=== PATIENT | female | born 1995 ===

== ENCOUNTER 2018-07-01 15:18 | Emergency (ER) | payer OTHER ==
[2018-07-01 15:30] VITALS: BMI 20.1
[2018-07-01] MEDS ORDERED: Tdap Vaccine 0.5 ml Vial (10-64 yrs) IM ONE ×2 (15:43→15:51)
[2018-07-01] MEDS ORDERED: Lidocaine Hydrochloride 5 ML INJ ONE (15:44)
--- NOTE | 2018-07-01 15:46 | C.PDOC ---
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 Patient states that she hit her hand against a piece of gym equipment when she was in the gym and sustained a laceration to the dorsal aspect of left 1st digit. She notes that she had bleeding which was controlled with pressure. Bandage in place on arrival. Unknown last tetanus. Denies having weakness, numbness, parasthesia, or lacerations elsewhere. Time Seen by Provider: 07/01/18 15:36 Chief Complaint (Nursing): Abnormal Skin Integrity History Per: Patient History/Exam Limitations: no limitations Onset/Duration Of Symptoms: Hrs Current Symptoms Are (Timing): Still Present Severity: Moderate Past Medical History Reviewed: Historical Data, Nursing Documentation, Vital Signs Vital Signs: Last Vital Signs Temp 98.5 F 07/01/18 15:30 Pulse 65 07/01/18 15:30 Resp BP 111/72 07/01/18 15:30 Pulse Ox 100 07/01/18 15:30 - Medical History PMH: No Chronic Diseases Surgical History: No Surg Hx Family History: States: No Known Family Hx - Social History Hx Tobacco Use: No Hx Alcohol Use: No Hx Substance Use: No - Immunization History Hx Tetanus Toxoid Vaccination: Yes Hx Influenza Vaccination: No Hx Pneumococcal Vaccination: No Review Of Systems Except As Marked, All Systems Reviewed And Found Negative. Constitutional: Negative for: Fever, Chills Cardiovascular: Negative for: Chest Pain, Palpitations Respiratory: Negative for: Cough, Shortness of Breath Gastrointestinal: Negative for: Nausea, Vomiting, Abdominal Pain Musculoskeletal: Positive for: Hand Pain (left thumb) Skin: Positive for: Other (left hand laceration) Neurological: Negative for: Weakness, Numbness, Headache, Dizziness Physical Exam - Physical Exam Appears: Well, Non-toxic, No Acute Distress Skin: Normal Color, Warm, Dry, Other (4.5 cm linear laceration to dorsal aspect of left thumb with clean edges and small amount of active bleeding, no tendon involvement or FB) Head: Atraumatic, Normacephalic Eye(s): bilateral: Normal Inspection, PERRL, EOMI Nose: Normal Oral Mucosa: Moist Neck: Normal ROM, Supple Chest: Symmetrical Cardiovascular: Rhythm Regular Respiratory: Normal Breath Sounds, No Rales, No Rhonchi, No Wheezing Extremity: Normal ROM, Tenderness (over laceration left thumb), Capillary Refill (<2s), No Deformity, Other (laceration left thumb; full strength of left thumb against resistance - extenison, and flexion) Extremity: Right: Atraumatic, Normal Color And Temperature, Bilateral: Normal ROM Pulses: Left Radial: Normal, Right Radial: Normal Neurological/Psych: Oriented x3, Normal Speech, Normal Motor, Normal Sensation Gait: Steady ED Course And Treatment O2 Sat by Pulse Oximetry: 100 (RA) Pulse Ox Interpretation: Normal - Other Rad X-Ray-Left Hand X-Ray: Viewed By Me, Read By Radiologist Interpretation: Date of service: 07/01/2018. PROCEDURE: Left Thumb radiographs. HISTORY: laceration dorsal thumb. COMPARISON: None available. TECHNIQUE: AP radiograph of the left hand, as well as spot oblique and lateral images of thumb were obtained. FINDINGS: LEFT THUMB: Unremarkable left 1st digit without acute displaced fracture identified. Remainder of the left hand (as seen on the AP view) grossly unremarkable. JOINTS: No dislocation. SOFT TISSUES: Soft tissue swelling. No evidence of radiopaque foreign body. OTHER FINDINGS: None. IMPRESSION: Soft tissue swelling. No acute displaced fracture. No evidence of radiopaque foreign body. Procedure: Wound Repair - Time Performed Time Performed: 16:30 - Time Out Time Out: Side verified, Site verified, Patient ID confirmed, Sterile procedures obs. - Procedure Procedure: Wound Repair: Laceration Repair with Sutures - Consent Obtained Consent obtained: Verbal - Performed by Performed by: Mid-level Provider - Indications Indication(s):: Laceration - Location Location:: Left, Dorsal, Hand Finger:: Left, Thumb Shape:: Linear Dimensions Length cm: 4.5 Depth:: Muscle - Anesthetic Technique Anesthetic Technique: Local Local/Regional Anesthetic:: Lidocaine 1% - Wound Examination Wound Examination:: Other (NO tendon involvement or FB visualized. Full strength against resistance) - Debris Debris:: None - Irrigated Irrigated with ml of normal saline: 500 - Complexity Complexity:: Intermediate (2 layer) - Wound repair method Sutures:: # (8), Size (4-0), Type (nylon), Technique (simple interrupted) - Muscle repiar layer closed with Muscle repair layer closed with:: # (2), Size (5-0), Type (chromic), Technique (simple interrupted), Wound well approximated, Abx ointment applied, Dressing applied, Tetanus ordered - Complications Complications: None - Patient tolerated procedure Patient Tolerated Procedure:: Well Medical Decision Making Medical Decision Making: Plan: --X-Ray-Left Hand --Tylenol PO --Tetanus Vaccination --Laceration Repair Xray reveals no fracture or FB On wound exploration, no FB or tendon laceration apparent. Patient has full ROM of affected digit with full strength against resistance. Sensation intact. Pulses 2/2. Patient tolerated wound repair well without complication. In total, 2 deep absorbable chromic gut and 8 non-absorbable nylon sutures were used to close the laceration. Patient instructed on wound care and advised to return in 10-14 days for suture removal of 8 sutures. Secondary to depth of wound and mechanism of injury, will discharge with prescription for Keflex and recommend hand followup. Diagnostic testing results and plan of care discussed with patient. Strict instructions given regarding prescription use, importance of followup, and signs/symptoms to return to ER including fever, chills, signs of wound infection, worsened pain, or any other new/worsening symptoms. Pt verbalized understanding of discussion. Patient is A&Ox3, ambulating with steady gait, with vital signs stable for discharge. Disposition - Disposition Referrals: Jack Arizmendi MD [Staff Provider] - Jacob Davis MD [Staff Provider] - Disposition: HOME/ ROUTINE Disposition Time: 17:00 Condition: IMPROVED Additional Instructions: RETURN IN 10-14 DAYS FOR SUTURE REMOVAL Keflex every 6 hours for 1 week Keep wound dry and covered for 48 hours After 48 hours, you may clean the wound daily with soap and water and pat dry After cleaning, apply bacitracin and dressing Keep wound clean, dry, and covered Followup with primary doctor within 2 days Followup with hand doctor within 2 days Return to ER for any signs of wound infection including redness, tenderness, swelling, drainage, fever or any other new/worsening symptoms Prescriptions: Cephalexin [Keflex] 500 mg PO QID 7 Days #28 capsule Instructions: Wound Care, Laceration Repair With Stitches (DC) Forms: General Discharge Instructions, [facility] (Swedish), Work Excuse - Clinical Impression Clinical Impression: Laceration - 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 - Scribe Statement The provider has reviewed the documentation as recorded by the Scribe Summen Ricky Provider Attestation All medical record entries made by the Kei were at my direction and personally dictated by me. I have reviewed the chart and agree that the record a ccurately reflects my personal performance of the history, physical exam, medical decision making, and the department course for this patient. I have also personally directed, reviewed, and agree with the discharge instructions and disposition.
--- NOTE | 2018-07-01 16:31 | RAD ---
Date of service: 07/01/2018 PROCEDURE: Left Thumb radiographs. HISTORY: laceration dorsal thumb COMPARISON: None available. TECHNIQUE: AP radiograph of the left hand, as well as spot oblique and lateral images of thumb were obtained. FINDINGS: LEFT THUMB: Unremarkable left 1st digit without acute displaced fracture identified. Remainder of the left hand (as seen on the AP view) grossly unremarkable. JOINTS: No dislocation. SOFT TISSUES: Soft tissue swelling. No evidence of radiopaque foreign body. OTHER FINDINGS: None. IMPRESSION: Soft tissue swelling. No acute displaced fracture. No evidence of radiopaque foreign body.
[2018-07-01] MEDS ORDERED: Bacitracin 500 Units/gm Oint Foilpak UD ONE (17:07)
[2018-07-01] MEDS ORDERED: Bacitracin 500 Units/gm Oint Foilpak UD TOP ONE (17:08)
[2018-07-01 17:17] VITALS: BP 130/87; PULSE 71; TEMP 98.4
[2018-07-01 19:31] VITALS: O2SAT 100
== END 2018-07-01 17:34 | disposition home or self-care (01) ==
LOC: C.ER 15:18
DX: S61.012A Laceration without foreign body of left thumb without damage to nail, initial encounter (principal); W22.8XXA Striking against or struck by other objects, initial encounter; Y92.39 Other specified sports and athletic area as the place of occurrence of the external cause

== ENCOUNTER 2018-07-19 16:31 | Emergency (ER) | payer OTHER ==
[2018-07-19 16:32] VITALS: BMI 20.1
[2018-07-19 16:56] VITALS: BP 103/70; PULSE 67; RESP 20; TEMP 98; O2SAT 100
--- NOTE | 2018-07-19 18:02 | C.PDOC ---
History Of Present Illness 22 y/o female presents to the ED for suture removal. She had sutures placed to the left thumb 12 days ago. Patient reports applying bacitracin, and stopped a few days ago because she noticed the wound was not fully closing. No signs of infection. She denies any fevers or chills. Time Seen by Provider: 07/19/18 17:14 Chief Complaint (Nursing): Suture/Staple Removal History Per: Patient History/Exam Limitations: no limitations Onset/Duration Of Symptoms: Days Ago (12) Current Symptoms Are (Timing): Still Present Past Medical History Reviewed: Historical Data, Nursing Documentation, Vital Signs Vital Signs: Last Vital Signs Temp 98.0 F 07/19/18 16:53 Pulse 67 07/19/18 16:53 Resp 20 07/19/18 16:53 BP 103/70 07/19/18 16:53 Pulse Ox 100 07/19/18 16:53 - Medical History PMH: No Chronic Diseases Surgical History: No Surg Hx Family History: States: Unknown Family Hx - Social History Hx Tobacco Use: No Hx Alcohol Use: No Hx Substance Use: No - Immunization History Hx Tetanus Toxoid Vaccination: Yes Hx Influenza Vaccination: Yes (as per patient) Hx Pneumococcal Vaccination: Yes (as per patient) Review Of Systems Constitutional: Negative for: Fever, Chills Musculoskeletal: Negative for: Hand Pain Skin: Positive for: Lesions (healing laceration to left thumb). Negative for: Rash Neurological: Negative for: Weakness, Numbness Physical Exam - Physical Exam Appears: Well, Non-toxic, No Acute Distress Skin: Normal Color, Warm, No Rash Head: Atraumatic, Normacephalic Eye(s): bilateral: Normal Inspection (no scleral icterus) Neck: Normal ROM Chest: Symmetrical Respiratory: No Accessory Muscle Use, Other (Normal inspiratory effort) Extremity: Normal ROM, Capillary Refill (< 2 sec), No Deformity, No Swelling, Other (Linear healing laceration to the dorsal aspect of left 1st digit, wound edges not fully sealed, sutures intact, no gross erythema or discharge from wound) Pulses: Left Radial: Normal, Right Radial: Normal Neurological/Psych: Oriented x3 Gait: Steady ED Course And Treatment O2 Sat by Pulse Oximetry: 100 (RA) Pulse Ox Interpretation: Normal Medical Decision Making Medical Decision Making: Impression: Visit for wound check Plan: Sutures not removed due to wound edges not fully sealed. No signs or symptoms of infection. Patient advised to discontinue bacitracin return in 2-3 days for suture removal. Disposition Counseled Patient/Family Regarding: Diagnosis, Need For Followup - Disposition Disposition: HOME/ ROUTINE Disposition Time: 18:01 Condition: STABLE Instructions: Wound Care (DC) Forms: [facility] (Cambodian), General Discharge Instructions - Clinical Impression Clinical Impression: Visit for wound check - PA / VOLUNTEER SERVICES COORDINATOR / Resident Statement MD/DO has reviewed & agrees with the documentation as recorded. - Scribe Statement The provider has reviewed the documentation as recorded by the Scribfermin Valladares All medical record entries made by the Antolinibfermin were at my direction and personally dictated by me. I have reviewed the chart and agree that the record accurately reflects my personal performance of the history, physical exam, medical decision making, and the department course for this patient. I have also personally directed, reviewed, and agree with the discharge instructions and disposition.
== END 2018-07-19 18:09 | disposition home or self-care (01) ==
LOC: C.ER 16:31
DX: Z48.00 Encounter for change or removal of nonsurgical wound dressing (principal)

== ENCOUNTER 2018-08-09 13:31 | Emergency (ER) | payer OTHER ==
[2018-08-09 13:31] VITALS: BMI 20.1
--- NOTE | 2018-08-09 13:38 | C.PDOC ---
History Of Present Illness 22 yr old female w/ no ppmhx p/w L hand/ thumb laceration on dorsal surface. Pt notes that she had sutures placed 3 weeks ago, and returned 1 week prior but was told the sutures are not yet ready to be taken out. Pt denies any d/c coming from the laceration site. No redness or crepitus. No swelling or fluid collection noted. No difficulty moving hand. Tetanus UTD No other complaints. Time Seen by Provider: 08/09/18 13:38 Chief Complaint (Nursing): Wound Check Past Medical History Family History: States: Unknown Family Hx - Social History Hx Tobacco Use: No Hx Alcohol Use: No Hx Substance Use: No - Immunization History Hx Tetanus Toxoid Vaccination: Yes Hx Influenza Vaccination: No Hx Pneumococcal Vaccination: No Review Of Systems Constitutional: Negative for: Fever, Chills, Weakness Eyes: Negative for: Pain, Vision Change ENT: Negative for: Ear Pain, Ear Discharge, Nose Congestion, Mouth Pain Cardiovascular: Negative for: Chest Pain, Palpitations Respiratory: Negative for: Cough, Shortness of Breath, SOB with Excertion, Pleuritic Pain Gastrointestinal: Negative for: Nausea, Vomiting, Abdominal Pain, Constipation, Melena Genitourinary: Negative for: Dysuria, Frequency, Vaginal Discharge, Vaginal Bleeding Musculoskeletal: Negative for: Neck Pain, Shoulder Pain Skin: Negative for: Rash, Jaundice Neurological: Negative for: Weakness, Numbness Physical Exam - Physical Exam Appears: Well, Non-toxic, No Acute Distress Skin: Normal Color, Warm Head: Atraumatic, Normacephalic Eye(s): bilateral: Normal Inspection, PERRL, EOMI Ear(s): Bilateral: Normal Nose: Normal Oral Mucosa: Moist Tongue: Normal Appearing Lips: Normal Appearing Teeth: Normal Dentition Gingiva: Normal Appearing Throat: Normal Neck: Normal, Normal ROM, Supple Lymphatic: Normal Exam, No Adenopathy Cardiovascular: Rhythm Regular Respiratory: Normal Breath Sounds Gastrointestinal/Abdominal: Normal Exam Back: Normal Inspection, No CVA Tenderness, No Vertebral Tenderness Extremity: Normal ROM, No Tenderness, No Calf Tenderness, Capillary Refill (normal), Deformity (lac to L dorsal thumb / hand. Good hemostasis, wound healed well. [address] No erythema, crepitus, d/c or fluid collection noted. N/V intact distal and proximal. No knavels signs.), No Swelling Extremity: Bilateral: Normal ROM Neurological/Psych: Oriented x3, Normal Speech Gait: Steady Medical Decision Making Medical Decision Makin yr old female w/ tetanus UTD p/w suture removal. Wound well healed. no signs of infection. good n/v status. 8 sutures removed. Good hemostasis post removal and with good approximation. Clear for d/c home with return indications and f/u. Pt agreeable to plan. Disposition - Disposition Referrals: Duane Dowell MD [Medical Doctor] - [facility] [Outside] [facility] [Outside] [facility] [Outside] Disposition Time: 14:09 Condition: GOOD Additional Instructions: SHANTELL SHEN, thank you for letting us take care of you today. Your provider was Richard Moe and you were treated for WOUND CHECK. The emergency medical care you received today was directed at your acute symptoms. If you were prescribed any medication, please fill it and take as directed. It may take several days for your symptoms to resolve. Return to the Emergency Department if your symptoms worsen, do not improve, or if you have any other problems. Please contact your doctor or call one of the physicians/clinics you have been referred to that are listed on the Patient Visit Information form that is included in your discharge packet. Bring any paperwork you were given at discharge with you along with any medications you are taking to your follow up visit. Our treatment cannot replace ongoing medical care by a primary care provider outside of the emergency department. [facility]. If you had an X-Ray or CT scan: A Radiologist will review the ED reading if any change in treatment is needed we will contact you. If you had a blood, urine, or wound culture: It will take several days for the results, if any change in treatment is needed we will contact you. If you had an STI test: It will take 48 hours for the results. Please call after 1 week if you have not heard back. Instructions: Stitches Removal Forms: [facility] ([place]wana) - Clinical Impression Clinical Impression: Visit for suture removal
[2018-08-09 13:41] VITALS: BP 100/63; PULSE 82; RESP 20; TEMP 98.8; O2SAT 99
== END 2018-08-09 14:30 | disposition home or self-care (01) ==
LOC: C.ER 13:31
DX: Z48.02 Encounter for removal of sutures (principal)